=== PATIENT | female | born 1980 | race Two or more races ===

== ENCOUNTER 2022-09-21 02:27 | Emergency (ER) | payer SELFPAY ==
[~2022-09-21] VITALS: Ht 162.6 cm; Wt 65.8 kg
[2022-09-21 02:49] VITALS: BP 144/84
[2022-09-21] MEDS ORDERED: PENICILLIN G BENZATHINE 2.4 MMU/4 ML ML IM ONE (03:30)
[2022-09-21] MEDS ORDERED: FLUORESCEIN SODIUM OPHTH 1 EA STRIP ONE (03:45)
--- NOTE | 2022-09-21 03:52 | NUR ---
Patient does not wish to proceed with medical care recommended by Dr. Muniz. Patient given information related to possible complications, up to and including , which could occur as a result of leaving the hospital at this time. Patient verbalizes understanding of risks involved due to leaving against medical advice. Patient has signed AMA form.
[2022-09-21] MEDS ORDERED: TETRAcaine 5 ML BOTTLE EACHEYE ONE (04:00)
[2022-09-21] MEDS ORDERED: FLUORESCEIN SODIUM OPHTH 1 EA STRIP OP ONE (04:00)
== END 2022-09-21 03:53 | disposition left against medical advice (07) ==
LOC: ER 02:29
DX: H57.89 Other specified disorders of eye and adnexa (principal); Z11.3 Encounter for screening for infections with a predominantly sexual mode of transmission; F17.200 Nicotine dependence, unspecified, uncomplicated; Z90.49 Acquired absence of other specified parts of digestive tract; Z88.2 Allergy status to sulfonamides
CPT/HCPCS: 99283; J7030